=== PATIENT | male | born 1950 | race African-American/Black ===

== ENCOUNTER 2020-09-04 06:35 | Inpatient (IN) | payer MEDICARE, MEDICAID ==
[~2020-09-04] VITALS: Ht 172.7 cm; Wt 75.7 kg
[2020-09-04 07:44] LABS: Basophils # (auto) 0.1 10 ^3/uL (0-0.2); Basophils % (auto) 0.8 % (0.0-2.0); Eosinophils # (auto) 0.1 10 ^3/uL (0-0.8); Eosinophils % (auto) 0.9 % (0.0-7.0); Hematocrit 44.6 % (41.0-53.0); Hemoglobin 15.3 g/dL (13.5-17.5); Lymphocytes # (auto) 1.1 10 ^3/uL (0.4-5.4); Lymphocytes % (auto) 14.9 % (10.0-50.0); Mean Corpuscular Hemoglobin 31.4 pg (28.0-32.0); Mean Corpuscular Hgb Conc. 34.4 g/dL (32.0-36.0); Mean Corpuscular Volume 91.4 fL (80.0-100.0); Monocytes # (auto) 0.6 10 ^3/uL (0-1.3); Monocytes % (auto) 7.6 % (0.0-12.0); Neutrophils # (auto) 5.7 10 ^3/uL (1.6-8.6); Neutrophils % (auto) 75.8 % (37.0-80.0); Red Blood Cells 4.88 10^6/uL (4.5-5.90); Red Cell Distribution Width 14.5 % (11.8-14.3); White Blood Cell 7.6 10^3/uL (4.4-10.8)
[2020-09-04 08:00] LABS: Urine Bacteria NONE SEEN /hpf (None Seen); Urine Blood Negative /uL (Negative); Urine Mucus FEW (None Seen); Urine Specific Gravity 1.017 (1.001-1.035); Urine WBC 1 /hpf (0 - 3)
[2020-09-04 08:00] LABS: Calcium 9.7 mg/dL (8.5-10.1); Potassium 3.7 mmol/L (3.5-5.1)
[2020-09-04 08:03] LABS: Albumin 3.2 g/dL (3.4-5.0); BUN/Creatinine Ratio 13.3
[2020-09-04 08:15] LABS: Bilirubin, Total 0.6 mg/dL (0.2-1.0); Total Protein 8.1 g/dL (6.4-8.2)
[2020-09-04] MEDS ORDERED: SODIUM CHLORIDE 0.9% 1,000 ML IV ONE ×2 (08:15)
[2020-09-04] MEDS ORDERED: NITROGLYCERIN 0.4 MG SL TAB SL PRN (10:15)
[2020-09-04] MEDS ORDERED: DEXTROSE (50%) 50ML SYRG IV PRN (10:15)
[2020-09-04] MEDS ORDERED: ONDANSETRON HCL 4 MG/2 ML VIAL IV PRN (10:15)
[2020-09-04] MEDS ORDERED: ACETAMINOPHEN 500 MG TAB PO PRN (10:15)
[2020-09-04] MEDS ORDERED: MORPHINE SULFATE INJECTION 2 MG/ML SYRG IV PRN (10:15)
[2020-09-04] MEDS: ACCU-CHEK COMFORT CURVE STRIP VI SCH ×3 (11:30→21:18)
[2020-09-04] MEDS: InsuLIN REG 1unit/0.01ml Soln (100units/ml) SC SCH ×3 (11:32→21:18)
[2020-09-04] MEDS ORDERED: TAM04C PO (15:44)
[2020-09-04 16:22] VITALS: BP 153/93
[2020-09-04 16:54] VITALS: BP 153/93
[2020-09-04] MEDS ORDERED: IBUP800T27 PO (20:18)
[2020-09-04] MEDS ORDERED: LORA1TAB23 PO (20:18)
[2020-09-04] MEDS ORDERED: METF-370 PO (20:18)
[2020-09-04] MEDS ORDERED: LISI20TA28 PO (20:18)
[2020-09-04] MEDS ORDERED: HYDR-3682 PO ×2 (20:18)
[2020-09-04] MEDS ORDERED: AML5T PO (20:18)
[2020-09-04] MEDS: LABETALOL HCL 5 MG/ML 4ML SYRINGE IV PRN (20:22)
[2020-09-04] MEDS: traMADol HCL 50 MG TAB PO PRN (20:22)
[2020-09-04 22:00] VITALS: BP 150/88
[2020-09-04 23:00] VITALS: BP 145/78
[2020-09-05] VITALS (11 sets, daily range): BP systolic 149–157; BP diastolic 84–93
[2020-09-05] MEDS: MORPHINE SULFATE INJECTION 2 MG/ML SYRG IV PRN ×2 (04:48→21:39)
[2020-09-05] MEDS: ACCU-CHEK COMFORT CURVE STRIP VI SCH ×4 (06:04→21:33)
[2020-09-05] MEDS: InsuLIN REG 1unit/0.01ml Soln (100units/ml) SC SCH ×4 (06:04→21:46)
[2020-09-05 06:52] LABS: INR 1.15 (0.9-1.15); Partial Thromboplastin Time 30.5 sec (23.0-31.2)
[2020-09-05 06:54] LABS: Potassium 3.7 mmol/L (3.5-5.1)
[2020-09-05 07:02] LABS: Albumin 2.6 g/dL (3.4-5.0); BUN/Creatinine Ratio 12.9; Bilirubin, Total 0.9 mg/dL (0.2-1.0); Total Protein 7.3 g/dL (6.4-8.2)
[2020-09-05] MEDS: FAMOTIDINE 20 MG TAB PO SCH (09:32)
[2020-09-05] MEDS ORDERED: GELATIN 1 SPONGE SIZE 50 TOP ONE (09:41)
[2020-09-05] MEDS ORDERED: LIDOCAINE 2%HCL (LOCAL ANESTH.) INJ 20ML MDV ONE (09:41)
[2020-09-05] MEDS ORDERED: GADOTERATE MEG 10 MMOL/20ml INJ (0.5MMOL/ml) IV ONE (10:38)
[2020-09-05] MEDS ORDERED: IBUPROFEN 800 MG TAB PO PRN (12:45)
[2020-09-05] MEDS ORDERED: TAMSULOSIN HYDROCHLORIDE 0.4 MG CAP PO ONE (13:00)
[2020-09-05] MEDS ORDERED: fentaNYL CITRATE 100 MCG/2 ML VL ONE (13:06)
[2020-09-05] MEDS ORDERED: MIDAZOLAM HCL 2MG/2ML 2ml VIAL (1mg/ml) ONE (13:06)
[2020-09-05] MEDS ORDERED: fentaNYL CITRATE 100 MCG/2 ML VL IV ONE (15:00)
[2020-09-05] MEDS ORDERED: MIDAZOLAM HCL 2MG/2ML 2ml VIAL (1mg/ml) IV ONE (15:00)
[2020-09-05] MEDS: traMADol HCL 50 MG TAB PO PRN ×2 (16:45→23:47)
[2020-09-05] MEDS: LORazepam 0.5 MG TAB PO PRN (23:42)
[2020-09-06 04:51] VITALS: BP 151/88
[2020-09-06] MEDS: traMADol HCL 50 MG TAB PO PRN ×2 (05:56→16:00)
[2020-09-06] MEDS: ACCU-CHEK COMFORT CURVE STRIP VI SCH ×4 (05:57→22:18)
[2020-09-06] MEDS: MORPHINE SULFATE INJECTION 2 MG/ML SYRG IV PRN (06:04)
[2020-09-06] MEDS: InsuLIN REG 1unit/0.01ml Soln (100units/ml) SC SCH ×4 (06:12→22:19)
[2020-09-06 07:14] LABS: Basophils # (auto) 0 10 ^3/uL (0-0.2); Basophils % (auto) 0.5 % (0.0-2.0); Eosinophils # (auto) 0.1 10 ^3/uL (0-0.8); Eosinophils % (auto) 1.4 % (0.0-7.0); Hematocrit 41.3 % (41.0-53.0); Hemoglobin 14.2 g/dL (13.5-17.5); Lymphocytes # (auto) 1.2 10 ^3/uL (0.4-5.4); Lymphocytes % (auto) 17.6 % (10.0-50.0); Mean Corpuscular Hemoglobin 31.6 pg (28.0-32.0); Mean Corpuscular Hgb Conc. 34.5 g/dL (32.0-36.0); Mean Corpuscular Volume 91.5 fL (80.0-100.0); Monocytes # (auto) 0.6 10 ^3/uL (0-1.3); Monocytes % (auto) 8.8 % (0.0-12.0); Neutrophils # (auto) 4.7 10 ^3/uL (1.6-8.6); Neutrophils % (auto) 71.7 % (37.0-80.0); Nucleated Red Blood Cells % 0.1 %; Red Blood Cells 4.51 10^6/uL (4.5-5.90); Red Cell Distribution Width 14.5 % (11.8-14.3); White Blood Cell 6.6 10^3/uL (4.4-10.8)
[2020-09-06 07:31] LABS: Potassium 3.8 mmol/L (3.5-5.1)
[2020-09-06 07:36] LABS: Albumin 2.7 g/dL (3.4-5.0); BUN/Creatinine Ratio 17.9; Bilirubin, Total 0.7 mg/dL (0.2-1.0); Calcium 9.1 mg/dL (8.5-10.1); Total Protein 7.3 g/dL (6.4-8.2)
[2020-09-06 09:00] VITALS: BP 151/85
[2020-09-06] MEDS: TAMSULOSIN HYDROCHLORIDE 0.4 MG CAP PO SCH (09:59)
[2020-09-06] MEDS: amLODIPine BESYLATE 5 MG TAB PO SCH (10:01)
[2020-09-06] MEDS: FAMOTIDINE 20 MG TAB PO SCH (10:01)
[2020-09-06] MEDS: LISINOPRIL 20 MG TAB PO SCH (10:01)
[2020-09-06] MEDS: HYDROmorphone HCL 2 MG/ML VL IV PRN ×3 (11:20→22:15)
[2020-09-06 13:00] VITALS: BP 152/98
[2020-09-06 16:43] VITALS: BP 152/88
[2020-09-06 22:00] VITALS: BP 148/85
[2020-09-07] MEDS: LORazepam 0.5 MG TAB PO PRN (00:07)
[2020-09-07] MEDS: MORPHINE SULFATE INJECTION 2 MG/ML SYRG IV PRN ×2 (00:13→08:44)
[2020-09-07] MEDS: traMADol HCL 50 MG TAB PO PRN (01:38)
[2020-09-07] MEDS: HYDROmorphone HCL 2 MG/ML VL IV PRN ×3 (02:58→12:29)
[2020-09-07 05:00] VITALS: BP 158/91
[2020-09-07] MEDS: LABETALOL HCL 5 MG/ML 4ML SYRINGE IV PRN (05:39)
[2020-09-07 05:46] LABS: Basophils # (auto) 0 10 ^3/uL (0-0.2); Basophils % (auto) 0.2 % (0.0-2.0); Eosinophils # (auto) 0 10 ^3/uL (0-0.8); Eosinophils % (auto) 0.4 % (0.0-7.0); Hematocrit 41.1 % (41.0-53.0); Hemoglobin 14.3 g/dL (13.5-17.5); Lymphocytes # (auto) 0.9 10 ^3/uL (0.4-5.4); Lymphocytes % (auto) 11.9 % (10.0-50.0); Mean Corpuscular Hemoglobin 31.8 pg (28.0-32.0); Mean Corpuscular Hgb Conc. 34.8 g/dL (32.0-36.0); Mean Corpuscular Volume 91.3 fL (80.0-100.0); Monocytes # (auto) 0.6 10 ^3/uL (0-1.3); Monocytes % (auto) 7.5 % (0.0-12.0); Neutrophils # (auto) 6.1 10 ^3/uL (1.6-8.6); Nucleated Red Blood Cells % 0.1 %; Red Cell Distribution Width 14.6 % (11.8-14.3); White Blood Cell 7.7 10^3/uL (4.4-10.8)
[2020-09-07 06:01] LABS: Calcium 9.5 mg/dL (8.5-10.1); Potassium 3.9 mmol/L (3.5-5.1)
[2020-09-07 06:05] LABS: BUN/Creatinine Ratio 23.9
[2020-09-07 06:30] VITALS: BP 142/86
[2020-09-07] MEDS: InsuLIN REG 1unit/0.01ml Soln (100units/ml) SC SCH ×2 (06:30→12:30)
[2020-09-07] MEDS: ACCU-CHEK COMFORT CURVE STRIP VI SCH ×2 (06:30→11:30)
[2020-09-07] MEDS: FAMOTIDINE 20 MG TAB PO SCH (08:42)
[2020-09-07] MEDS: TAMSULOSIN HYDROCHLORIDE 0.4 MG CAP PO SCH (08:42)
[2020-09-07] MEDS: amLODIPine BESYLATE 5 MG TAB PO SCH (08:43)
[2020-09-07] MEDS: LISINOPRIL 20 MG TAB PO SCH (08:43)
[2020-09-07 09:00] VITALS: BP 136/84
[2020-09-07 12:32] VITALS: BP 146/82
[2020-09-07] MEDS ORDERED: MILK OF MAGNESIA 30ML SUSP PO ONE (13:00)
[2020-09-07 13:37] VITALS: BP 146/82
[2020-09-10 13:28] LABS: Hepatitis B Surface Antibody Negative
[2020-09-10 18:45] LABS: Hepatitis B Surface Antigen Negative (Negative)
[2020-09-11 08:08] LABS: Hepatitis C Antibody Positive (Negative)
== END 2020-09-07 15:50 | disposition home or self-care (01) | DRG 435 ==
LOC: ER 06:35 → TELE 10:02 → TELE-EAST 16:22
PROVIDERS: ADMIT Nurse Practitioner Acute Care; ATTEND Internal Medicine Pulmonary Disease
PROC: 0FB23ZX Excision of Left Lobe Liver, Percutaneous Approach, Diagnostic (ICD-10-PCS; principal; 2020-09-05)
DX: C22.0 Liver cell carcinoma (principal); I81 Portal vein thrombosis; R16.0 Hepatomegaly, not elsewhere classified; I10 Essential (primary) hypertension; E11.9 Type 2 diabetes mellitus without complications; B19.20 Unspecified viral hepatitis C without hepatic coma; E78.5 Hyperlipidemia, unspecified; F32.9 Major depressive disorder, single episode, unspecified; F41.9 Anxiety disorder, unspecified; R07.89 Other chest pain; Z82.49 Family history of ischemic heart disease and other diseases of the circulatory system; Z83.3 Family history of diabetes mellitus; Z91.041 Radiographic dye allergy status; Z20.822 Contact with and (suspected) exposure to COVID-19
CPT/HCPCS: 10022; 36415; 71250; 74176; 74183; 77012; 80048; 80053; 80061; 81001; 82105; 82378; 82962; 83036; 83615; 83690; 85025; 85610; 85730; 86706; 86803; 87340; 87426; 96360; 96361; G0378; J1815; J2250; J3490

== ENCOUNTER 2020-09-18 11:31 | Emergency (ER) | payer MEDICARE, MEDICAID ==
[~2020-09-18] VITALS: Ht 172.7 cm; Wt 76.2 kg
[~2020-09-18 11:31] MED LIST: AML5T PO; HYDR-3682 PO; IBUP800T27 PO; LISI20TA28 PO; LORA1TAB23 PO; METF-370 PO; TAM04C PO
[2020-09-18 13:46] LABS: Basophils # (auto) 0.1 10 ^3/uL (0-0.2); Basophils % (auto) 0.7 % (0.0-2.0); Eosinophils # (auto) 0 10 ^3/uL (0-0.8); Eosinophils % (auto) 0.2 % (0.0-7.0); Hematocrit 43.9 % (41.0-53.0); Hemoglobin 14.7 g/dL (13.5-17.5); Lymphocytes # (auto) 1.1 10 ^3/uL (0.4-5.4); Lymphocytes % (auto) 11.8 % (10.0-50.0); Mean Corpuscular Hemoglobin 30.4 pg (28.0-32.0); Mean Corpuscular Hgb Conc. 33.6 g/dL (32.0-36.0); Mean Corpuscular Volume 90.4 fL (80.0-100.0); Monocytes # (auto) 0.6 10 ^3/uL (0-1.3); Monocytes % (auto) 6.9 % (0.0-12.0); Neutrophils # (auto) 7.3 10 ^3/uL (1.6-8.6); Neutrophils % (auto) 80.4 % (37.0-80.0); Nucleated Red Blood Cells % 0.1 %; Platelet Count (auto) 399 10^3/uL (140-450); Red Blood Cells 4.85 10^6/uL (4.5-5.90); Red Cell Distribution Width 14.4 % (11.8-14.3)
[2020-09-18 14:08] LABS: Albumin 2.7 g/dL (3.4-5.0); Calcium 9.6 mg/dL (8.5-10.1); Potassium 4.1 mmol/L (3.5-5.1)
[2020-09-18 14:12] LABS: BUN/Creatinine Ratio 16.9; Bilirubin, Total 0.7 mg/dL (0.2-1.0); Total Protein 7.9 g/dL (6.4-8.2)
[2020-09-18 15:28] VITALS: BP 138/82
== END 2020-09-18 14:45 | disposition home or self-care (01) ==
LOC: ER 11:31
DX: K52.9 Noninfective gastroenteritis and colitis, unspecified (principal); E11.9 Type 2 diabetes mellitus without complications; Z79.1 Long term (current) use of non-steroidal anti-inflammatories (NSAID); Z79.899 Other long term (current) drug therapy; Z88.8 Allergy status to other drugs, medicaments and biological substances
CPT/HCPCS: 36415; 71046; 80053; 85025; 93005

== ENCOUNTER 2020-12-23 09:52 | Inpatient (IN) | payer MEDICARE, MEDICAID ==
[~2020-12-23] VITALS: Ht 175.3 cm; Wt 61.6 kg
[2020-12-23] MEDS ORDERED: SODIUM CHLORIDE 0.9% 1,000 ML IV ONE (10:15)
[2020-12-23 10:52] LABS: Basophils # (auto) 0.1 10 ^3/uL (0-0.2); Basophils % (auto) 1.8 % (0.0-2.0); Eosinophils # (auto) 0 10 ^3/uL (0-0.8); Eosinophils % (auto) 0.3 % (0.0-7.0); Hemoglobin 11.3 g/dL (13.5-17.5); Lymphocytes # (auto) 0.5 10 ^3/uL (0.4-5.4); Lymphocytes % (auto) 10.2 % (10.0-50.0); Mean Corpuscular Hemoglobin 28.6 pg (28.0-32.0); Mean Corpuscular Hgb Conc. 33.1 g/dL (32.0-36.0); Mean Corpuscular Volume 86.4 fL (80.0-100.0); Monocytes # (auto) 0.4 10 ^3/uL (0-1.3); Monocytes % (auto) 7.4 % (0.0-12.0); Neutrophils % (auto) 80.3 % (37.0-80.0); Red Blood Cells 3.94 10^6/uL (4.5-5.90); White Blood Cell 4.9 10^3/uL (4.4-10.8)
[2020-12-23 11:07] LABS: INR 1.17 (0.9-1.15); Partial Thromboplastin Time 31.6 sec (23.6-33.0)
[2020-12-23 11:12] LABS: Alanine Aminotransferase 33 U/L (16-61); Albumin 1.9 g/dL (3.4-5.0); Anion Gap 8 (5-15); Aspartate Aminotransferase 36 U/L (15-37); BUN/Creatinine Ratio 22.4; Blood Urea Nitrogen 11 mg/dL (7-18); Carbon Dioxide 25 mmol/L (21-32); Chloride 103 mmol/L (98-107); GFR African American 218 mL/min; GFR Non-African American 180 mL/min; Glucose 124 mg/dL (74-106); Sodium 136 mmol/L (136-145)
[2020-12-23 11:16] LABS: Alkaline Phosphatase 206 U/L (45-117); Bilirubin, Total 0.7 mg/dL (0.2-1.0); Total Protein 6.7 g/dL (6.4-8.2)
[2020-12-23 16:10] LABS: Urine Bacteria NONE SEEN /hpf (None Seen); Urine Blood Negative /uL (Negative); Urine Mucus FEW (None Seen); Urine Specific Gravity 1.023 (1.001-1.035); Urine WBC 1 /hpf (0 - 3)
[2020-12-23] MEDS ORDERED: NITROGLYCERIN 0.4 MG SL TAB SL PRN (16:45)
[2020-12-23] MEDS ORDERED: DEXTROSE (50%) 50ML SYRG IV PRN (16:45)
[2020-12-23] MEDS ORDERED: MORPHINE SULFATE INJECTION 2 MG/ML SYRG IV PRN (16:45)
[2020-12-23] MEDS: InsuLIN REG 1unit/0.01ml Soln (100units/ml) SC SCH ×2 (17:51→21:51)
[2020-12-23] MEDS: ACCU-CHEK COMFORT CURVE STRIP VI SCH ×2 (17:53→21:50)
[2020-12-23] MEDS: HYDROmorphone HCL 2 MG/ML VL IV PRN (19:03)
[2020-12-23] MEDS: ONDANSETRON HCL 4 MG/2 ML VIAL IV PRN (19:03)
[2020-12-23] MEDS: MORPHINE SULF 15mg ER tab PO SCH (21:50)
[2020-12-24] MEDS: HYDROmorphone HCL 2 MG/ML VL IV PRN ×7 (00:29→22:03)
[2020-12-24] MEDS: InsuLIN REG 1unit/0.01ml Soln (100units/ml) SC SCH ×4 (06:47→21:04)
[2020-12-24] MEDS: ACCU-CHEK COMFORT CURVE STRIP VI SCH ×4 (06:47→21:04)
[2020-12-24] MEDS: LISINOPRIL 20 MG TAB PO SCH (08:47)
[2020-12-24] MEDS: amLODIPine BESYLATE 5 MG TAB PO SCH (08:47)
[2020-12-24] MEDS: MORPHINE SULF 15mg ER tab PO SCH ×2 (08:47→21:04)
[2020-12-24] MEDS: ONDANSETRON HCL 4 MG/2 ML VIAL IV PRN (12:18)
[2020-12-24] MEDS: TAMSULOSIN HYDROCHLORIDE 0.4 MG CAP PO SCH (18:14)
[2020-12-24 20:15] VITALS: BP 143/89
[2020-12-24 22:00] VITALS: BP 143/89
[2020-12-25] MEDS: HYDROmorphone HCL 2 MG/ML VL IV PRN ×7 (01:04→22:11)
[2020-12-25] MEDS ORDERED: OXY20CRT PO (02:55)
[2020-12-25] MEDS ORDERED: OXYM40TA OR (02:55)
[2020-12-25] MEDS: ONDANSETRON HCL 4 MG/2 ML VIAL IV PRN ×3 (04:30→20:50)
[2020-12-25 05:00] VITALS: BP 148/89
[2020-12-25] MEDS: ACCU-CHEK COMFORT CURVE STRIP VI SCH ×4 (06:04→20:50)
[2020-12-25] MEDS: InsuLIN REG 1unit/0.01ml Soln (100units/ml) SC SCH ×4 (06:04→20:50)
[2020-12-25 08:42] VITALS: BP 151/80
[2020-12-25] MEDS: MORPHINE SULF 15mg ER tab PO SCH ×2 (10:00→20:50)
[2020-12-25] MEDS: LISINOPRIL 20 MG TAB PO SCH (10:37)
[2020-12-25] MEDS: amLODIPine BESYLATE 5 MG TAB PO SCH (10:37)
[2020-12-25 12:32] VITALS: BP 141/86
[2020-12-25 17:35] VITALS: BP 151/84
[2020-12-25] MEDS: TAMSULOSIN HYDROCHLORIDE 0.4 MG CAP PO SCH (18:12)
[2020-12-25 22:00] VITALS: BP 147/80
[2020-12-26 05:00] VITALS: BP 109/60
[2020-12-26] MEDS: InsuLIN REG 1unit/0.01ml Soln (100units/ml) SC SCH ×2 (05:43→11:30)
[2020-12-26] MEDS: HYDROmorphone HCL 2 MG/ML VL IV PRN ×3 (05:43→13:04)
[2020-12-26] MEDS: ACCU-CHEK COMFORT CURVE STRIP VI SCH ×2 (05:43→11:30)
[2020-12-26] MEDS: ONDANSETRON HCL 4 MG/2 ML VIAL IV PRN ×2 (07:41→10:36)
[2020-12-26 09:00] VITALS: BP 130/75
[2020-12-26] MEDS: LISINOPRIL 20 MG TAB PO SCH (09:20)
[2020-12-26] MEDS: amLODIPine BESYLATE 5 MG TAB PO SCH (09:20)
[2020-12-26] MEDS: MORPHINE SULF 15mg ER tab PO SCH (10:00)
[2020-12-26 13:00] VITALS: BP 147/81
== END 2020-12-26 16:15 | disposition home health service (06) | DRG 180 ==
LOC: ER 09:52 → EDBD 09:52 → TELE 16:31 → TELE-WESTW 12-24 20:15
PROVIDERS: ADMIT Nurse Practitioner Acute Care; ATTEND Family Medicine
PROC: 0W9B3ZZ Drainage of Left Pleural Cavity, Percutaneous Approach (ICD-10-PCS; principal; 2020-12-24)
DX: C78.00 Secondary malignant neoplasm of unspecified lung (principal); E43 Unspecified severe protein-calorie malnutrition; J91.0 Malignant pleural effusion; C22.9 Malignant neoplasm of liver, not specified as primary or secondary; C22.0 Liver cell carcinoma; R62.7 Adult failure to thrive; E11.9 Type 2 diabetes mellitus without complications; D63.8 Anemia in other chronic diseases classified elsewhere; K57.30 Diverticulosis of large intestine without perforation or abscess without bleeding; I10 Essential (primary) hypertension; Z68.20 Body mass index [BMI] 20.0-20.9, adult; Z79.84 Long term (current) use of oral hypoglycemic drugs; Z79.899 Other long term (current) drug therapy; Z82.49 Family history of ischemic heart disease and other diseases of the circulatory system; Z83.3 Family history of diabetes mellitus; Z88.2 Allergy status to sulfonamides; Z20.828 Contact with and (suspected) exposure to other viral communicable diseases; R06.03 Acute respiratory distress
CPT/HCPCS: 36415; 70450; 71045; 74176; 76604; 76942; 80053; 81001; 82140; 82962; 84484; 85025; 85610; 85730; 87205; 87426; 93005; 96361; 96374; G0378; J2405

== ENCOUNTER 2021-04-24 07:41 | Emergency (ER) | payer MEDICAID, MEDICARE ==
[~2021-04-24] VITALS: Ht 167.6 cm; Wt 54.4 kg
[~2021-04-24 07:41] MED LIST changes: -LORA1TAB23 PO; +OXY20CRT PO; +OXYM40TA OR
[2021-04-24 12:04] LABS: Albumin 1.9 g/dL (3.4-5.0); Calcium 9.5 mg/dL (8.5-10.1); Magnesium 2.4 mg/dL (1.6-2.6); Potassium 4.6 mmol/L (3.5-5.1)
[2021-04-24 12:06] LABS: BUN/Creatinine Ratio 30.2
[2021-04-24 12:09] LABS: Bilirubin, Total 0.8 mg/dL (0.2-1.0); Total Protein 7.2 g/dL (6.4-8.2)
[2021-04-24 12:10] LABS: Basophils # (auto) 0.1 10 ^3/uL (0-0.2); Eosinophils # (auto) 0 10 ^3/uL (0-0.8); Lymphocytes # (auto) 0.6 10 ^3/uL (0.4-5.4); Neutrophils # (auto) 4.7 10 ^3/uL (1.6-8.6); Nucleated Red Blood Cells % 0.1 %; White Blood Cell 5.7 10^3/uL (4.4-10.8)
[2021-04-24 12:12] LABS: Basophils % (auto) 0.9 % (0.0-2.0); Eosinophils % (auto) 0.5 % (0.0-7.0); Hematocrit 32.6 % (41.0-53.0); Lymphocytes % (auto) 9.8 % (10.0-50.0); Mean Corpuscular Hemoglobin 32.3 pg (28.0-32.0); Mean Corpuscular Hgb Conc. 33.7 g/dL (32.0-36.0); Mean Corpuscular Volume 95.9 fL (80.0-100.0); Monocytes # (auto) 0.4 10 ^3/uL (0-1.3); Neutrophils % (auto) 81.8 % (37.0-80.0); Red Cell Distribution Width 15.3 % (11.8-14.3)
[2021-04-24 16:36] VITALS: BP 141/55
== END 2021-04-24 16:37 | disposition home or self-care (01) ==
LOC: ER 07:41 → EDBD 07:41 → ER 16:37
DX: E86.0 Dehydration (principal); I10 Essential (primary) hypertension; E11.9 Type 2 diabetes mellitus without complications; Z79.1 Long term (current) use of non-steroidal anti-inflammatories (NSAID); Z79.899 Other long term (current) drug therapy; Z88.8 Allergy status to other drugs, medicaments and biological substances
CPT/HCPCS: 36415; 70450; 71045; 80053; 83735; 84484; 85025; 93005